=== PATIENT | male | born 1955 | race Caucasian/White ===

== ENCOUNTER 2020-04-02 00:39 | Inpatient (IN) | payer OTHER ==
[~2020-04-02] VITALS: Ht 175.3 cm; Wt 80.0 kg
[2020-04-02 01:28] LABS: BASOPHILS 0.1 % (0-2); EOSINOPHILS 0 % (0-7); HEMATOCRIT 40.8 % (42.0-54.0); HEMOGLOBIN 13.9 g/dL (13.5-17.5); IMMATURE GRANULOCYTES 0.1 % (0-5); LYMPHOCYTES 10.2 % (15-50); MCH 30.1 pg (26.0-34.0); MCHC 34.1 g/dL (31.0-37.0); MCV 88.3 fL (80.0-100.0); MEAN PLATELET VOLUME 9.7 fL (7.4-10.4); MONOCYTES 3.8 % (2-11); NEUTROPHILS 85.8 % (40-80); PLATELET COUNT 225 10x3/uL (130-400); RBC 4.62 10x6/uL (4.20-6.10); RDW 13.8 % (11.5-14.5); WBC 7.9 10x3/uL (4.8-10.8)
[2020-04-02 01:37] LABS: CALC OSMOLALITY 269 mosm/kg (275-300); CALCIUM 9.1 mg/dL (8.5-10.1); CARBON DIOXIDE 25.8 mmol/L (21.0-32.0); CHLORIDE - SERUM 104 mmol/L (98-107); CREATININE - SERUM 0.8 mg/dL (0.6-1.3); GLUCOSE 129 mg/dL (74-106); SODIUM 135 mmol/L (136-145); UREA NITROGEN 8 mg/dL (7-18); eGFR NON AFRICAN AMERICAN > 90 mL/min (90-120)
[2020-04-02 01:46] LABS: ALBUMIN 3.7 g/dL (3.4-5.0); ALKALINE PHOSPHATASE 83 U/L (30-120); ALT (SGPT) 80 U/L (10-68); AMYLASE - SERUM 51 U/L (25-115); BILIRUBIN - TOTAL 0.43 mg/dL (0.2-1.3); LIPASE 113 U/L (73-393); PROTEIN - SERUM 7.6 g/dL (6.4-8.2); TROPONIN-I < 0.017 ng/mL (0.000-0.060)
[2020-04-02 02:03] LABS: BILIRUBIN NEGATIVE (NEGATIVE); KETONE NEGATIVE (NEGATIVE); NITRITE NEGATIVE (NEGATIVE); UROBILINOGEN NORMAL mg/dL (< 2)
--- NOTE | 2020-04-02 08:30 | NUR ---
RECEIVED REPORT FROM ER. PT PRESENTED WITH ABD PAIN, NO NAUSEA OR VOMITING. PIV IN RIGHT WRIST, PATENT AND INFUSING, NO REDNESS OR SWELLING. SPEECH GARBLED. PT ABLE TO AMBULATE WITH MIN ASSIST. PT STATES THAT HE HAD A SX ON HIS NECK A FEW DAYS AGO BUT CANNOT RECALL THE NAME OF MD OR FACILITY HE WAS AT. SPOUSE STATES THAT HE WAS GIVEN A SHOT AT HIS LAST WELLNESS CHECK UP AND HASNT FELT WELL SINCE THEN. WILL ATTEMPT TO FIND FACILITY AND/OR MD. EDUCATED PT ON NPO STATUS, CL AND NEEDS, VERBALIZED UNDERSTANDING. BED LOW, RAILS X2. CL IN REACH, WILL CONTINUE TO MONITOR.
[2020-04-02 09:51] VITALS: BP 140/78; BMI 26.0
--- NOTE | 2020-04-02 10:00 | NUR ---
PT HAD EGD WITH DR. KAY SEE SCANNED CHART.
[2020-04-02 10:43] VITALS: BP 146/82
[2020-04-02 11:27] VITALS: Ht 175.3 cm; Wt 80.0 kg
--- NOTE | 2020-04-02 12:30 | NUR ---
PT C/O STABBING ABD PAIN 02/15, PROVIDED PAIN MEDS PER ORDER. BED LOW, CL IN REACH.
[2020-04-02 13:03] VITALS: BP 137/77
[2020-04-02 17:22] VITALS: BP 154/78
--- NOTE | 2020-04-02 19:45 | NUR ---
PATIENT TRANSFERRED TO ROOM 2210 VIA BED, PATIENT AWAKE AND ALERT, 4 LAP SITES TO ABDOMEN WITH BANDAIDS C/D/I, NO DISTRESS NOTED, O2@2L VIA NC IN USE, FAMILY X1 AT BS, WILL CONTINUE TO MONITOR PATIENT, INSTRUCTED TO USE CALL LIGHT FOR ASSISTANCE, PATIENT VERBALIZED UNDERSTANDING
[2020-04-02 21:08] VITALS: BP 127/68
[2020-04-03 01:14] VITALS: BP 127/68
[2020-04-03 05:46] LABS: BASOPHILS 0.2 % (0-2); EOSINOPHILS 0 % (0-7); HEMATOCRIT 36.4 % (42.0-54.0); HEMOGLOBIN 11.9 g/dL (13.5-17.5); IMMATURE GRANULOCYTES 0.2 % (0-5); LYMPHOCYTES 9.4 % (15-50); MCH 29.7 pg (26.0-34.0); MCHC 32.7 g/dL (31.0-37.0); MEAN PLATELET VOLUME 10.1 fL (7.4-10.4); MONOCYTES 5.4 % (2-11); NEUTROPHILS 84.8 % (40-80); PLATELET COUNT 202 10x3/uL (130-400); RBC 4.01 10x6/uL (4.20-6.10); RDW 14.4 % (11.5-14.5); WBC 6.3 10x3/uL (4.8-10.8)
[2020-04-03 05:48] LABS: MCV 90.8 fL (80.0-100.0)
[2020-04-03 05:57] VITALS: BP 127/69
[2020-04-03 06:02] LABS: ALKALINE PHOSPHATASE 96 U/L (30-120); BILIRUBIN - TOTAL 0.54 mg/dL (0.2-1.3); CALC OSMOLALITY 278 mosm/kg (275-300); CALCIUM 8.2 mg/dL (8.5-10.1); CARBON DIOXIDE 27.9 mmol/L (21.0-32.0); CHLORIDE - SERUM 109 mmol/L (98-107); CREATININE - SERUM 0.6 mg/dL (0.6-1.3); GLUCOSE 131 mg/dL (74-106); MAGNESIUM - SERUM 1.8 mg/dL (1.8-2.4); PHOSPHOROUS 3.2 mg/dL (2.5-4.9); PROTEIN - SERUM 5.8 g/dL (6.4-8.2); SODIUM 140 mmol/L (136-145); UREA NITROGEN 7 mg/dL (7-18); eGFR NON AFRICAN AMERICAN > 90 mL/min (90-120)
[2020-04-03 06:05] LABS: ALBUMIN 2.6 g/dL (3.4-5.0); ALT (SGPT) 178 U/L (10-68); TROPONIN-I < 0.017 ng/mL (0.000-0.060)
--- NOTE | 2020-04-03 09:00 | NUR ---
RESTING IN BED, NO DISTESS NOTED, FAMILY IN ROOM, IV INFUSING, CONT TO MONITOR PAIN
[2020-04-03 09:27] VITALS: BP 139/79
[2020-04-03 12:00] VITALS: BP 146/74
--- NOTE | 2020-04-03 15:18 | OP ---
PATIENT NAME: JERMAINE PETERSEN MEDICAL RECORD: [id number] :51 LOCATION:[id number] ADMISSION DATE:04/02/20 SURGEON: CECILIA LAWTON MD DATE OF OPERATION: 04/02/2020 PREOPERATIVE DIAGNOSIS: Acute cholecystitis. POSTOPERATIVE DIAGNOSES: Acute cholecystitis with hepatomegaly, also bilious ascites. PROCEDURES: 1. Laparoscopic cholecystectomy. 2. Intraoperative cholangiography without immediate surgeon interpretation. 3. A 14-gauge core needle liver biopsy. SURGEON: Cecilia Lawton MD MANAGER PEOPLE: Sol Nobles [facility]. BLOOD LOSS: 50 cc. ANESTHESIA: General. COMPLICATIONS: None. The risks, possible complications and alternatives to the procedure were explained to the patient. He elects to proceed. Discussion specifically included, but was not limited to, bleeding requiring emergency reoperation, infection, intestinal injury as well as common bile duct injury. The indication for the liver biopsy was hepatomegaly. OPERATIVE COURSE: The patient was conveyed to the operating room electively on 04/02/2020. General anesthesia was induced by the anesthesia staff. The abdomen was sterilely prepped and draped. A skin incision was accomplished in the left upper quadrant. Veress needle was inserted through the skin incision into the peritoneal cavity. CO2 insufflation was begun. Once a sufficient pneumoperitoneum had been achieved, a 5-mm trocar was inserted in the left upper quadrant. Under direct internal vision utilizing a television camera, a 12-mm trocar was inserted through an incision at the umbilicus. Two more 5-mm trocars were inserted, one in the epigastrium and one far laterally in the right upper quadrant. During insertion of the Veress needle and all trocars, there appeared to have been no injury to the bowels, any intraperitoneal or retroperitoneal structures. Pericholecystic fluid was present. This was bilious ascites. The gallbladder was acutely inflamed. Under laparoscopic guidance, I percutaneously accessed the right upper quadrant utilizing a 14-gauge core biopsy device. Cores were obtained over the convexity of the liver. The biopsy sites were made hemostatic with electrocautery. I then grasped the gallbladder. I advanced a cholangiogram trocar. I then punctured the fundus of the gallbladder. I injected dye. The gallbladder OPERATIVE REPORT [id number] JERMAINE PETERSEN filled, but there was no filling of the ductal structures as it appeared that there was an impacted stone. The radiologist's interpretation will be dictated separately. I then aspirated bile and removed the cholangiogram trocar. The gallbladder was grasped and retracted cephalad. The infundibulum was grasped and retracted laterally. Blunt dissection was begun on the triangle of Calot. One cystic artery and one cystic duct were identified. These were clipped multiply and divided between clips. The gallbladder was then excised from its bed in the liver. It was placed within a bag retrieval device and was withdrawn through the umbilical fascia defect. The 12-mm trocar was replaced and the abdomen reinsufflated. I irrigated and aspirated the right upper quadrant. There was no bleeding even at low pressure of 8. Mary Kay was added to the gallbladder fossa for additional hemostasis. Utilizing the Lonny-Kadi suture closure device and 0 Vicryl sutures, I closed the fascia at the umbilicus. The skin at the umbilicus was closed with interrupted 4-0 Vicryl Rapide sutures. The other skin incisions were closed with interrupted intracuticular 3-0 Vicryls. Benzoin and Steri-Strips were applied. The patient was then extubated and conveyed to post-anesthesia care unit where he was in stable condition. If the patient is doing well tomorrow, he would be a candidate for dismissal home. TRANSINT:[id number] Voice Confirmation ID: [id number] DOCUMENT ID: [id number] CECILIA LAWTON MD at 1518 CC: [id number] DICTATION DATE: 04/03/20 1350 VACUUM DRUM DRIER OPERATOR: 04/03/20 1510 ADM IN [place] [id number] [place] [address]
[2020-04-03 18:06] VITALS: BP 145/73
--- NOTE | 2020-04-03 18:23 | NUR ---
DR MILIAN OK WITH PT GOING HOME, WILL CK WITH DR LAWTON
[2020-04-03 20:00] VITALS: BP 141/67
[2020-04-03] MEDS ORDERED: COLACE100 MG PO (20:00)
[2020-04-03] MEDS ORDERED: HYDROCODON-ACE1 EAC7 PO (20:01)
--- NOTE | 2020-04-03 20:15 | NUR ---
RECEIVED NEW ORDER TO DISCHARGE PATIENT HOME, REMOVED IV'S, DISCHARGE INSTRUCTIONS GIVEN TO PATIENT, SCRIPT FOR COLACE AND NORCO GIVEN TO PATIENT, PATIENT VERBALIZED UNDERSTANDING, DC'D TO FAMILY CARE VIA W/C
--- NOTE | 2020-04-03 21:13 | NUR ---
ASSUMED CARE OF PATIENT AT 1900, PATIENT AAOX4, NO DISTRESS NOTED, LAP SITES X4 TO ABDOMEN C/D/I, C/O ABD PAIN, RATED PAIN 5 ON PAIN SCALE 1/10, PAIN MED GIVEN, NO FURTHER NEEDS VOICED, WILL CONTINUE TO MONITOR PATIENT, CALL LIGHT WITHIN REACH
== END 2020-04-03 20:15 | disposition home or self-care (01) | DRG 419 ==
LOC: D.ER 00:39 → D.MS 04:18 → D.EDHOLD 04:18 → D.MS 06:57
PROVIDERS: Emergency Medicine; Surgery; ADMIT Legal Medicine; ATTEND Legal Medicine
PROC: BF031ZZ Plain Radiography of Gallbladder and Bile Ducts using Low Osmolar Contrast (ICD-10-PCS; 2020-04-02)
PROC: 0FB03ZX Excision of Liver, Percutaneous Approach, Diagnostic (ICD-10-PCS; 2020-04-02)
PROC: 0FT44ZZ Resection of Gallbladder, Percutaneous Endoscopic Approach (ICD-10-PCS; principal; 2020-04-02 13:15)
DX: K80.01 Calculus of gallbladder with acute cholecystitis with obstruction (principal); N28.89 Other specified disorders of kidney and ureter; E87.6 Hypokalemia; K21.9 Gastro-esophageal reflux disease without esophagitis; I10 Essential (primary) hypertension

== ENCOUNTER → 2020-09-15 12:02 | Outpatient (CLI) | payer OTHER ==
[2020-04-02 11:27] VITALS: BMI 26.0
[~2020-09-15 12:02] MED LIST: COLACE100 MG PO; HYDROCODON-ACE1 EAC7 PO
== END | disposition home or self-care (01) ==
LOC: D.MRI 12:02
PROVIDERS: ATTEND Family Medicine
DX: M47.12 Other spondylosis with myelopathy, cervical region (principal)

== ENCOUNTER 2020-11-13 22:40 | Emergency (ER) | payer OTHER ==
[~2020-11-13] VITALS: Ht 175.3 cm; Wt 79.4 kg
[2020-11-13 22:50] VITALS: BP 125/80; Ht 175.3 cm; Wt 79.4 kg
[2020-11-14] MEDS ORDERED: HYDROCODON-ACE1 EA10 PO (00:57)
== END 2020-11-14 01:19 | disposition home or self-care (01) ==
LOC: D.ER 22:40
DX: S82.61XA Displaced fracture of lateral malleolus of right fibula, initial encounter for closed fracture (principal); W11.XXXA Fall on and from ladder, initial encounter; Y93.9 Activity, unspecified; Y92.9 Unspecified place or not applicable; S32.039A Unspecified fracture of third lumbar vertebra, initial encounter for closed fracture; I10 Essential (primary) hypertension; K21.9 Gastro-esophageal reflux disease without esophagitis